=== PATIENT | female | born 1955 | race Hispanic/Latino ===

== ENCOUNTER 2022-03-29 02:15 | Emergency (ER) | payer SELFPAY ==
[2022-03-29] MEDS ORDERED: KETOROLAC 30 MG/ML INJ ONE (02:55)
[2022-03-29] MEDS ORDERED: NA CHLORIDE 0.9% 1,000 ML ONE (03:24)
[2022-03-29] MEDS ORDERED: ONDANSETRON 4 MG/2 ML VIAL ONE (03:24)
[2022-03-29] MEDS ORDERED: KETAMINE HCL 500 MG/5 ML VIAL ONE (03:24)
--- NOTE | 2022-03-29 05:03 | ER ---
Nurse's Notes [facility] Name: Stephanie Wallace Age: 66 yrs Sex: Female : 1955 Arrival Date: 03/29/2022 Time: 02:16 Bed 6 Private MD: Diagnosis: Other dislocation of left shoulder joint Presentation: 03/29 02:30 Chief complaint: Patient states: she was celebrating and lost her balance and fell bb landing on her left side injuring her left arm pt denies hitting her head and no LOC. Care prior to arrival: None. Mechanism of Injury: Fall from standing position. Trauma event details: Injury occurred in the [facility], Injury occurred: at home. Injury occurred: March 29, 2022. 02:30 Acuity: ARIAN 3 bb 02:30 Method Of Arrival: Ambulatory bb 02:35 Coronavirus screen: At this time, the client does not indicate any symptoms associated bb with coronavirus-19. Ebola Screen: No symptoms or risks identified at this time. Initial Sepsis Screen: Does the patient meet any 2 criteria? No. Patient's initial sepsis screen is negative. Does the patient have a suspected source of infection? No. Patient's initial sepsis screen is negative. Risk Assessment: Do you want to hurt yourself or someone else? Patient reports no desire to harm self or others. Onset of symptoms was March 29, 2022. Triage Assessment: 02:30 General: Appears uncomfortable, Behavior is cooperative. Pain: Complains of pain in vc1 left shoulder. Trauma Activation: Not Applicable Physician: ED Physician; Name: ; Notified At: ; Arrived At: Physician: General Surgeon; Name: ; Notified At: ; Arrived At: Physician: Radiology; Name: ; Notified At: ; Arrived At: Physician: Respiratory; Name: ; Notified At: ; Arrived At: Physician: Lab; Name: ; Notified At: ; Arrived At: Historical: - Allergies: 02:35 Codeine; bb 02:35 wool; bb - Home Meds: 02:35 None [Active]; bb - PMHx: 02:35 None; bb - PSHx: 02:35 None; bb - Immunization history: Last tetanus immunization: unknown. - Social history:: Smoking status: Patient reports the use of cigarette tobacco products. - Family history:: not pertinent. Screenin:30 Abuse screen: Denies threats or abuse. Tuberculosis screening: No symptoms or risk bb factors identified. 02:30 [facility] ED Fall Risk Assessment (Adult) History of falling in the last 3 months, vc1 including since admission Yes- single mechanical fall (1 pt) Confusion or Disorientation No (0 pts) Intoxicated or Sedated Yes (3 pts) Impaired Gait No (0 pts) Mobility Assist Device Used No (0 pt) Altered Elimination No (0 pt) Score/Fall Risk Level 3 or more points = High Risk Oriented to surroundings, Maintained a safe environment, Educated pt \T\ family on fall prevention, incl call for assistance when getting out of bed. 03:28 Nutritional screening: No deficits noted. tw5 Primary Survey: 02:30 NO uncontrolled hemorrhage observed. A: The client is awake and alert. The airway is bb patent. Breathing/Chest: Spontaneous respiratory effort, equal unlabored respirations, breath sounds clear bilaterally, regular pattern, symmetrical chest rise and fall. Circulation: No external hemorrhage present. Regular and strong central pulse, skin warm/dry/normal color. Disability Client is alert. 02:30 Exposure/Environment: There is no evidence of uncontrolled external bleeding. No vc1 obvious injuries are noted at this time. A warming method has been applied: A warm blanket has been provided to the patient. Reassessment Breathing: Spontaneous respiratory effort, equal unlabored respirations, breath sounds clear bilaterally, regular pattern with symmetrical chest rise and fall. 03:00 Reassessment Alertness and Airway: Awake and alert. The airway is patent. vc1 Vital Signs: 02:30 BP 107 / 61; Pulse 61; Resp 20 S; Temp 97.4(O); Pulse Ox 96% on R/A; Weight 95.25 kg bb (R); Height 5 ft. 4 in. (162.56 cm) (R); Pain 10/10; 03:30 vc1 05:05 BP 117 / 70; Pulse 63; Resp 14; Pulse Ox 98% ; vc1 02:30 Body Mass Index 36.05 (95.25 kg, 162.56 cm) bb 03:30 See conscious sedation sheet for vitals [id number] vc1 Twan Coma Score: 02:30 Eye Response: spontaneous(4). Verbal Response: oriented(5). Motor Response: obeys bb commands(6). Total: 15. Trauma Score (Adult): 02:30 Eye Response: spontaneous(1); Verbal Response: oriented(1); Motor Response: obeys bb commands(2); Systolic BP: > 89 mm Hg(4); Respiratory Rate: 10 to 29 per min(4); Twan Score: 15; Trauma Score: 12 ED Course: 02:16 Patient arrived in ED. ja2 02:18 Lamine Velasquez MD is Attending Physician. rt 02:22 Keila Castillo is Primary Nurse. tw5 02:30 Patient has correct armband on for positive identification. Bed in low position. Call bb light in reach. Side rails up X2. Adult w/ patient. 02:30 Patient maintains SpO2 saturation greater than 95% on room air. bb 02:30 Thermoregulation: warm blanket given to patient. vc1 02:33 Triage completed. bb 02:35 Arm band placed on Patient placed in an exam room, on a stretcher, on pulse oximetry. bb Family accompanied patient. 03:08 Shoulder Left (2 View) XRAY In Process Unspecified. EDMS 03:08 Humerus Left XRAY In Process Unspecified. EDMS 03:28 Client placed on continuous cardiac and pulse oximetry monitoring. NIBP monitoring tw5 applied. Door closed. Moved to private room. 03:28 Oxygen administration via nasal cannula \T\ 2L/min. tw5 03:29 Awaiting for x-ray. tw5 03:29 Consent for conscious sedation explained by physician, signed by patient, Procedure tw5 consent explained by physician, signed by patient. 03:29 Assist provider with reduction of left shoulder using traction, Set up for procedure. tw5 Performed by Lamine Velasquez MD Immobilized with sling, Patient tolerated well. 03:48 XRAY Shoulder LEFT 2 view In Process Unspecified. EDMS 05:02 Reji Gallardo MD is Referral Physician. rt 05:38 IV discontinued, intact, bleeding controlled, No redness/swelling at site. Pressure vc1 dressing applied. Administered Medications: 03:28 Not Given (Other Intervention Used): Ketorolac 30 mg IM once tw5 03:28 Drug: Zofran (Ondansetron) 4 mg Route: IVP; Site: right antecubital; tw5 03:28 Drug: NS 0.9% 1000 ml Route: IV; Rate: 125 ml/hr; Site: right antecubital; tw5 03:28 Drug: Ketamine 100 mg {Note: provider at the bedside.} Route: IVP; Site: right tw5 antecubital; 03:28 Drug: Ketorolac 30 mg Route: IVP; Site: right antecubital; tw5 05:04 CANCELLED (in errorr): Dilaudid (HYDROmorphone) 1 mg IVP once rt Medication: 02:30 VIS not applicable for this client. vc1 Intake: 02:30 PO: 0ml; Total: 0ml. bb Outcome: 04:30 Patient's length of stay in the Emergency Department was greater than 2 hours. waiting vc1 on scans and pt to recover from conscious sedationPatient's length of stay extended due to 05:02 Discharge ordered by . rt 05:37 Discharged to home via wheelchair, with significant other. vc1 05:37 Condition: good 05:37 Discharge instructions given to patient, Instructed on discharge instructions, follow up and referral plans. Demonstrated understanding of instructions, follow-up care. 05:38 Patient left the ED. vc1 Signatures: Dispatcher [employer] Magaly Dial, RN RN Liya Bennett Tiffany tw5 Sarah Wyatt RN RN vc1 Lamine Velasquez MD MD rt
--- NOTE | 2022-03-29 05:03 | EDPHYS ---
Physician Documentation [facility] Name: Stephanie Wallace Age: 66 yrs Sex: Female : 1955 Arrival Date: 03/29/2022 Time: 02:16 Bed 6 Private MD: ED Physician Lamine Velasquez HPI: 03/29 03:19 This 66 yrs old Female presents to ER via Ambulatory with complaints of Fall rt Injury, Arm Injury. 03:19 Details of fall: The patient fell from an upright position, while walking. Onset: The rt symptoms/episode began/occurred acutely, just prior to arrival. 03:21 Presents to the ED with a left arm injury after a mechanical fall. Patient states that rt sheSide, to lost her balance, landed on a fence left arm. She reports pain to her left shoulder, aching nature, nonradiating. Denies other injuries, other acute complaints. Symptoms are moderate severity, no other aggravating alleviating factors.. Historical: - Allergies: 02:35 Codeine; bb 02:35 wool; bb - Home Meds: 02:35 None [Active]; bb - PMHx: 02:35 None; bb - PSHx: 02:35 None; bb - Immunization history: Last tetanus immunization: unknown. - Social history:: Smoking status: Patient reports the use of cigarette tobacco products. - Family history:: not pertinent. ROS: 03:21 Constitutional: Negative for fever, chills, and weight loss, Eyes: Negative for injury, rt pain, redness, and discharge, ENT: Negative for injury, pain, and discharge, Cardiovascular: Negative for chest pain, palpitations, and edema, Respiratory: Negative for shortness of breath, cough, wheezing, and pleuritic chest pain, Abdomen/GI: Negative for abdominal pain, nausea, vomiting, diarrhea, and constipation, Skin: Negative for injury, rash, and discoloration, Neuro: Negative for headache, weakness, numbness, tingling, and seizure, Psych: Negative for depression, anxiety, suicide ideation, homicidal ideation, and hallucinations. 03:21 MS/extremity: Positive for injury or acute deformity, Negative for laceration. Exam: 03:21 Constitutional: This is a well developed, well nourished patient who is awake, alert, rt and in no acute distress. Head/Face: Normocephalic, atraumatic. Eyes: Pupils equal round and reactive to light, extra-ocular motions intact. Lids and lashes normal. Conjunctiva and sclera are non-icteric and not injected. Cornea within normal limits. Periorbital areas with no swelling, redness, or edema. ENT: Nares patent. No nasal discharge, no septal abnormalities noted. Tympanic membranes are normal and external auditory canals are clear. Oropharynx with no redness, swelling, or masses, exudates, or evidence of obstruction, uvula midline. Mucous membranes moist. Neck: Trachea midline, no thyromegaly or masses palpated, and no cervical lymphadenopathy. Supple, full range of motion without nuchal rigidity, or vertebral point tenderness. No Meningismus. Chest/axilla: Normal chest wall appearance and motion. Nontender with no deformity. No lesions are appreciated. Cardiovascular: Regular rate and rhythm with a normal S1 and S2. No gallops, murmurs, or rubs. Normal PMI, no JVD. No pulse deficits. Respiratory: Lungs have equal breath sounds bilaterally, clear to auscultation and percussion. No rales, rhonchi or wheezes noted. No increased work of breathing, no retractions or nasal flaring. Abdomen/GI: Soft, non-tender, with normal bowel sounds. No distension or tympany. No guarding or rebound. No evidence of tenderness throughout. Skin: Warm, dry with normal turgor. Normal color with no rashes, no lesions, and no evidence of cellulitis. Neuro: Awake and alert, GCS 15, oriented to person, place, time, and situation. Cranial nerves II-XII grossly intact. Motor strength 5/5 in all extremities. Sensory grossly intact. Cerebellar exam normal. Normal gait. Psych: Awake, alert, with orientation to person, place and time. Behavior, mood, and affect are within normal limits. 03:21 Musculoskeletal/extremity: Tenderness, deformity to the left shoulder, pulses, motor, sensation intact. Vital Signs: 02:30 BP 107 / 61; Pulse 61; Resp 20 S; Temp 97.4(O); Pulse Ox 96% on R/A; Weight 95.25 kg bb (R); Height 5 ft. 4 in. (162.56 cm) (R); Pain 10/10; 03:30 vc1 05:05 BP 117 / 70; Pulse 63; Resp 14; Pulse Ox 98% ; vc1 02:30 Body Mass Index 36.05 (95.25 kg, 162.56 cm) bb 03:30 See conscious sedation sheet for vitals [id number] vc1 Twan Coma Score: 02:30 Eye Response: spontaneous(4). Verbal Response: oriented(5). Motor Response: obeys bb commands(6). Total: 15. Trauma Score (Adult): 02:30 Eye Response: spontaneous(1); Verbal Response: oriented(1); Motor Response: obeys bb commands(2); Systolic BP: > 89 mm Hg(4); Respiratory Rate: 10 to 29 per min(4); Sedgwick Score: 15; Trauma Score: 12 Procedures: 04:38 Reduction: of the left shoulder, using traction, manipulation, Immobilized with rt shoulder immobilizer. Patient tolerated well. Post reduction film - reveals normal alignment. Moderate sedation: Pre-procedure assessment: the patient has been NPO 3 hour(s) prior to arrival, ASA physical classification: II - mild/mod systemic disease that does not interfere with daily routines, Airway assessment: able to hyperextend neck, able to maintain airway, can open mouth without difficulty, Mallampati classification of tongue size: I - faucial pillars, soft palate, and uvula can be fully visualized, Monitoring during procedure: quality assurance monitor body, continuous pulse oximetry, nurse at bedside at all times, Medications employed: Ketamine, 100 mg(s), Post-procedure assessment: the patient is not sedated, Napier sedation score: 1 - patient anxious or agitated or both, Respiratory status: even and unlabored, a reversal agent was not used. MDM: 02:30 Patient medically screened. rt 04:38 Differential diagnosis: Contusion, fracture, dislocation. Data reviewed: vital signs, rt nurses notes, radiologic studies. 03/29 02:34 Order name: Shoulder Left (2 View) XRAY rt 03/29 02:34 Order name: Humerus Left XRAY rt 03/29 03:32 Order name: XRAY Shoulder LEFT 2 view bb Administered Medications: 03:28 Not Given (Other Intervention Used): Ketorolac 30 mg IM once tw5 03:28 Drug: Zofran (Ondansetron) 4 mg Route: IVP; Site: right antecubital; tw5 03:28 Drug: NS 0.9% 1000 ml Route: IV; Rate: 125 ml/hr; Site: right antecubital; tw5 03:28 Drug: Ketamine 100 mg {Note: provider at the bedside.} Route: IVP; Site: right tw5 antecubital; 03:28 Drug: Ketorolac 30 mg Route: IVP; Site: right antecubital; tw5 05:04 CANCELLED (in errorr): Dilaudid (HYDROmorphone) 1 mg IVP once rt Disposition Summary: 03/29/22 05:02 Discharge Ordered Location: Home rt Problem: new rt Symptoms: have improved rt Condition: Stable rt Diagnosis - Other dislocation of left shoulder joint rt Followup: rt - With: Reji Gallardo MD - When: 2 - 3 days - Reason: Discharge Instructions: - Discharge Summary Sheet rt - Shoulder Dislocation rt - Moderate Conscious Sedation, Adult, Care After rt Forms: - Medication Reconciliation Form rt - Thank You Letter rt - Antibiotic Education rt - Prescription Opioid Use rt Signatures: Dispatcher [employer] Magaly Dial RN RN bb Wood, Tiffany tw5 Lamine Velasquez MD MD rt Corrections: (The following items were deleted from the chart) 05:04 05:04 Dilaudid (HYDROmorphone) 1 mg IVP once ordered. rt rt
[2022-03-29 05:44] VITALS: TEMP 97.4
[2022-03-29 05:45] VITALS: BP 117/70; O2SAT 98
--- NOTE | 2022-03-29 09:24 | RAD REPORT ---
EXAM DESCRIPTION: RAD - Humerus Left - 03/29/2022 3:06 am CLINICAL HISTORY: trauma Trauma, pain COMPARISON: No comparisons FINDINGS: Dislocation of the humeral head is present. This is likely an anterior dislocation. There is a significant fracture fragment along the posterolateral aspect of the humeral head.
--- NOTE | 2022-03-29 09:25 | RAD REPORT ---
EXAM DESCRIPTION: RAD - Shoulder Left 2 View - 03/29/2022 3:06 am CLINICAL HISTORY: trauma COMPARISON: Shoulder Left 2 View dated 03/29/2022; Humerus Left dated 03/29/2022 FINDINGS: Humeral head appears dislocated anteriorly. Large Hill-Sachs fracture fragment is seen pos terolateral humeral head.
--- NOTE | 2022-03-29 16:14 | RAD REPORT ---
EXAM DESCRIPTION: Shoulder Left 2 View 03/29/2022 4:00 AM CO FOUNDER AND DIRECTOR CLINICAL HISTORY: 66 years, Female, post reduction COMPARISON: None FINDINGS: 1 X-ray views of the left shoulder (Y view) were performed. There is diffuse bony osteopenia. There is no dislocation. There are no gross intraosseous lesions. The AC joint demonstrate to be within normal limits. IMPRESSION: No evidence for dislocation. Electronically signed by: Steve Wilkins MD 03/29/2022 4:03 AM [employer] F[employer]ER AND DIRECTOR Due to temporary technical issues with the PACS/Fluency reporting system, reports are being signed by the in house radiologists without review as a courtesy to insure prompt reporting. The interpreting radiologist is fully responsible for the content of the report.
== END 2022-03-29 05:38 | disposition home or self-care (01) ==
LOC: ER 02:15
PROC: 0RSKXZZ Reposition Left Shoulder Joint, External Approach (ICD-10-PCS; principal; 2022-03-29)
DX: S43.085A Other dislocation of left shoulder joint, initial encounter (principal); Z72.0 Tobacco use; Z88.5 Allergy status to narcotic agent; Z91.048 Other nonmedicinal substance allergy status
CPT/HCPCS: 96374; 96375; 99284; J2405; J7030